=== PATIENT | female | born 1965 | race Caucasian/White ===

== ENCOUNTER 2017-04-15 12:06 | Emergency (ER) | payer MEDICAID ==
[~2017-04-15] VITALS: Ht 162.6 cm; Wt 68.2 kg
[~2017-04-15 12:06] MED LIST: HYDR-3516 PO; HYDR-3533 PO; HYDR25TA5 PO; LISI-515 PO; LORA-474 PO; NIAC500T5 PO
[2017-04-15 12:08] VITALS: BP 162/82; PULSE 89; RESP 16; TEMP 99.2; O2SAT 98
[2017-04-15] MEDS ORDERED: IBUPROFEN 600 MG TAB PO ONE (12:30)
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
--- NOTE | 2017-04-15 13:04 | RADRPT ---
EXAM DATE/TIME: 04/15/2017 12:28 [facility] COMPARISON: No previous studies available for comparison. INDICATIONS : Tripped over cat last night and landed on right wrist. Pain on thumb and 5th digit sides irradiating up through wrist. MEDICAL HISTORY : None. SURGICAL HISTORY : None. ENCOUNTER: Initial ACUITY: 1 day PAIN SCORE: 8/10 LOCATION: Right hand FINDINGS: There is no acut3 fracture or dislocation of the right hand. 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 CONCLUSION: 1. No acute fracture or dislocation. 2. 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 Carter Sanders MD on April 15, 2017 at 12:46 Board Certified Radiologist. This report was verified electronically.
--- NOTE | 2017-04-15 13:05 | RADRPT ---
EXAM DATE/TIME: 04/15/2017 12:37 [facility] COMPARISON: No previous studies available for comparison. INDICATIONS : Tripped over cat last night and landed on right wrist. Pain on thumb and 5th digit sides irradiating up through wrist. MEDICAL HISTORY : None. SURGICAL HISTORY : None. ENCOUNTER: Initial ACUITY: 1 day PAIN SCORE: 8/10 LOCATION: Right Wrist FINDINGS: No acute fracture or dislocation of the right wrist. No other focal bony abnormality identified. CONCLUSION: 1. No acute fracture or dislocation. Carter Sanders MD on April 15, 2017 at 12:52 Board Certified Radiologist. This report was verified electronically.
== END 2017-04-15 13:24 | disposition home or self-care (01) ==
LOC: PHEFT 12:06
DX: S63.501A Unspecified sprain of right wrist, initial encounter (principal); W01.0XXA Fall on same level from slipping, tripping and stumbling without subsequent striking against object, initial encounter
CPT/HCPCS: 73110; 73130; 99283

== ENCOUNTER 2017-11-09 23:10 | Emergency (ER) | payer MEDICAID ==
[~2017-11-09] VITALS: Ht 162.6 cm; Wt 67.4 kg
[~2017-11-09 23:10] MED LIST changes: +BUPR150T3 PO; +GABA300C5 PO; -HYDR-3533 PO
[2017-11-09 23:14] VITALS: BP 119/77; PULSE 90; RESP 20; TEMP 98; O2SAT 99
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
[2017-11-09] MEDS ORDERED: PENI500T PO (23:39)
[2017-11-09] MEDS ORDERED: PENICILLIN V POTASSIUM 500 MG TAB PO ONE (23:45)
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
[2017-11-10 00:27] VITALS: BP 123/65; TEMP 98.6
== END 2017-11-10 00:29 | disposition home or self-care (01) ==
LOC: PHED 23:10
DX: S00.83XA Contusion of other part of head, initial encounter (principal); W50.0XXA Accidental hit or strike by another person, initial encounter; I10 Essential (primary) hypertension; F41.9 Anxiety disorder, unspecified; E78.00 Pure hypercholesterolemia, unspecified; F17.200 Nicotine dependence, unspecified, uncomplicated
CPT/HCPCS: 70450; 70486; 99283